=== PATIENT | male | born 1950 | race Caucasian/White ===

== ENCOUNTER 2018-12-28 07:56 | Day surgery (SDC) | payer MEDICARE ==
[~2018-12-28] VITALS: Ht 177.8 cm; Wt 102.1 kg
[~2018-12-28 07:56] MED LIST: Aspirin EC81 MG; LOSA25; MULVITMIND PO; Neurontin 100100 MG; OMEP20ER PO; PRAV20 PO; TAMS.4ER
== END 2018-12-28 10:45 | disposition home or self-care (01) ==
LOC: ORSCSDS 07:56
PROVIDERS: Internal Medicine Gastroenterology
PROC: 0DBH8ZX Excision of Cecum, Via Natural or Artificial Opening Endoscopic, Diagnostic (ICD-10-PCS; principal; 2018-12-28 09:15)
PROC: 0DB58ZX Excision of Esophagus, Via Natural or Artificial Opening Endoscopic, Diagnostic (ICD-10-PCS; principal; 2018-12-28 09:15)
PROC: 0DBM8ZX Excision of Descending Colon, Via Natural or Artificial Opening Endoscopic, Diagnostic (ICD-10-PCS; principal; 2018-12-28 09:15)
PROC: 0DBK8ZX Excision of Ascending Colon, Via Natural or Artificial Opening Endoscopic, Diagnostic (ICD-10-PCS; principal; 2018-12-28 09:15)
PROC: 06LY4CC Occlusion of Hemorrhoidal Plexus with Extraluminal Device, Percutaneous Endoscopic Approach (ICD-10-PCS; principal; 2018-12-28 09:15)
PROC: 0DB68ZX Excision of Stomach, Via Natural or Artificial Opening Endoscopic, Diagnostic (ICD-10-PCS; principal; 2018-12-28 09:15)
PROC: 0DBN8ZX Excision of Sigmoid Colon, Via Natural or Artificial Opening Endoscopic, Diagnostic (ICD-10-PCS; principal; 2018-12-28 09:15)
DX: K21.9 Gastro-esophageal reflux disease without esophagitis (principal); C15.5 Malignant neoplasm of lower third of esophagus; K22.70 Barrett's esophagus without dysplasia; R11.0 Nausea; Z12.11 Encounter for screening for malignant neoplasm of colon; Z86.010 Personal history of colon polyps; D12.2 Benign neoplasm of ascending colon; D12.4 Benign neoplasm of descending colon; D12.0 Benign neoplasm of cecum; K63.5 Polyp of colon; K64.8 Other hemorrhoids; K64.4 Residual hemorrhoidal skin tags
CPT/HCPCS: 88305; 88342; J2704; J7120

== ENCOUNTER 2019-05-31 00:56 | Observation (INO) | payer MEDICARE, OTHER ==
[~2019-05-31] VITALS: Ht 177.8 cm; Wt 98.9 kg
--- NOTE | 2019-05-31 13:30 | NUR ---
1003 PT ADMITTED TO MEDICAL FLOOR VIA [facility], PT SELF TRANSFERED TO BE WITHOUT ISSUE. 1130 PEG TUBE FLUSHED WITH 30ML WATER WITH MODERATE RESISTENCE. FLUSHED WITH ADDITIONAL 30ML WATER WITH NO RESISTENCE. [address] DR[address] DR. RASHEED NOTIFIED THAT FEEDING TUBE PATENT. 1246 PT DISCHARGED HOME VIA PERSONAL VEHICLE ACCOMAPNIED AND DRIVEN BY AND SON. PT ESCORTED TO ENTRANCE VIA W/C BY [employer]. IV REMOVED PRIOR TO D/C. EDUCATED VERBALLY AND WITH WRITTEN ON MAINTAINING PATENT FEEDING TUBE.
== END 2019-05-31 12:46 | disposition home or self-care (01) ==
LOC: ER 00:56 → MEDS 00:57 → ERHOLD 00:57 → MEDS 10:03 → ENPENDDIS 12:00 → MEDS 12:46
PROVIDERS: ADMIT Family Medicine
DX: K94.23 Gastrostomy malfunction (principal); J44.9 Chronic obstructive pulmonary disease, unspecified; E78.5 Hyperlipidemia, unspecified; Z79.899 Other long term (current) drug therapy; Z87.891 Personal history of nicotine dependence
CPT/HCPCS: 74176; 96360; 96361; 99284-25; G0378; J7030

== ENCOUNTER → 2020-02-04 | Outpatient (CLI) | payer MEDICARE ==
[2020-02-04 15:09] LABS: BASOPHILS ABSOLUTE AUTO 0.03 K/mm3 (0.00-0.23); BASOPHILS PERCENT AUTO 0 % (0-2); EOSINOPHILS ABSOLUTE AUTO 0.07 K/mm3 (0.00-0.68); EOSINOPHILS PERCENT AUTO 1 % (0-6); Hematocrit 42.1 % (37.0-53.0); Hemoglobin 13.9 g/dL (13.5-17.5); IMMATURE GRAN ABSOLUTE AUTO 0.03 K/mm3 (0.00-0.10); IMMATURE GRAN PERCENT AUTO 0 % (0-1); LYMPHOCYTES ABSOLUTE AUTO 2.16 K/mm3 (0.84-5.20); LYMPHOCYTES PERCENT AUTO 28 % (21-46); MONOCYTES PERCENT AUTO 9 % (4-13); Mean Corpuscular HGB 30.5 pg (26.0-34.0); Mean Corpuscular Volume 92 fL (80-100); Mean Platelet Volume 12.7 fL (9.1-12.4); NEUTROPHILS ABSOLUTE AUTO 4.64 K/mm3 (1.96-9.15); NEUTROPHILS PERCENT AUTO 61 % (41-73); Platelet Count 116 K/mm3 (150-400); RDW Coefficient Variation 12.8 % (11.7-14.2); RDW Standard Deviation 43.2 fL (35.1-46.3); Red Blood Cell Count 4.56 M/mm3 (4.30-5.90); White Blood Cell Count 7.63 K/mm3 (4.00-11.30)
[2020-02-04 15:45] LABS: Alanine Aminotransfer (ALT/SGP 35 U/L (12-78); Albumin, Blood 3.8 g/dL (3.4-5.0); Albumin/Globulin Ratio 1.1 (0.8-1.8); Alk Phos 78 U/L (50-136); Anion Gap 5 mmol/L (6-16); Aspartate Aminotrans (AST/SGOT 23 U/L (12-37); Bilirubin, Total 0.4 mg/dL (0.1-1.0); Blood Urea Nitrogen 17 mg/dL (8-24); CO2, Blood 26 mmol/L (21-32); Calcium, Blood 9.1 mg/dL (8.5-10.1); Chloride, Blood 108 mmol/L (98-108); Creatinine, Blood 1.13 mg/dL (0.60-1.20); Globulin, Blood 3.5 g/dL (2.2-4.0); Glomerular Filtration Rate >60 (60-); Glucose, Blood 95 mg/dL (70-99); Phosphorus, Blood 3.5 mg/dL (2.5-4.9); Potassium, Blood 4.4 mmol/L (3.5-5.5); Sodium, Blood 139 mmol/L (136-145); Total Protein, Blood 7.3 g/dL (6.4-8.2)
== END | disposition home or self-care (01) ==
LOC: LAB 13:43 → LAB SHORT 13:43
PROVIDERS: Internal Medicine Hematology & Oncology
DX: C15.5 Malignant neoplasm of lower third of esophagus (principal); R42 Dizziness and giddiness; E53.8 Deficiency of other specified B group vitamins
CPT/HCPCS: 80053; 82607; 82746; 84100; 85025

== ENCOUNTER 2021-05-17 11:05 | Day surgery (SDC) | payer MEDICARE ==
[~2021-05-17] VITALS: Ht 177.8 cm; Wt 94.1 kg
[~2021-05-17 11:05] MED LIST changes: +AMLO5 PO; +DOXA1 PO; +LOSA50 PO; +TAMS.4ER PO; +ZOCOR20 MG PO
== END 2021-05-17 14:24 | disposition home or self-care (01) ==
LOC: ORSCSDS 11:05
PROVIDERS: Student in an Organized Health Care Education/Training Program
PROC: 0DJ08ZZ Inspection of Upper Intestinal Tract, Via Natural or Artificial Opening Endoscopic (ICD-10-PCS; principal; 2021-05-17 12:30)
PROC: 0DBM8ZX Excision of Descending Colon, Via Natural or Artificial Opening Endoscopic, Diagnostic (ICD-10-PCS; principal; 2021-05-17 12:30)
PROC: 0DBH8ZX Excision of Cecum, Via Natural or Artificial Opening Endoscopic, Diagnostic (ICD-10-PCS; principal; 2021-05-17 12:30)
PROC: 0DBK8ZX Excision of Ascending Colon, Via Natural or Artificial Opening Endoscopic, Diagnostic (ICD-10-PCS; principal; 2021-05-17 12:30)
PROC: 0DBN8ZX Excision of Sigmoid Colon, Via Natural or Artificial Opening Endoscopic, Diagnostic (ICD-10-PCS; principal; 2021-05-17 12:30)
DX: Z12.11 Encounter for screening for malignant neoplasm of colon (principal); Z85.01 Personal history of malignant neoplasm of esophagus; Z86.010 Personal history of colon polyps; K21.9 Gastro-esophageal reflux disease without esophagitis; R13.12 Dysphagia, oropharyngeal phase; D12.0 Benign neoplasm of cecum; D12.2 Benign neoplasm of ascending colon; D12.4 Benign neoplasm of descending colon; D12.5 Benign neoplasm of sigmoid colon; K64.8 Other hemorrhoids; K57.30 Diverticulosis of large intestine without perforation or abscess without bleeding; I10 Essential (primary) hypertension; J44.9 Chronic obstructive pulmonary disease, unspecified; E78.5 Hyperlipidemia, unspecified; Z79.899 Other long term (current) drug therapy
CPT/HCPCS: 88305; J0330; J0461; J2405; J2704; J7120

== ENCOUNTER → 2022-06-30 | Outpatient (CLI) | payer MEDICARE ==
[2022-06-30 17:49] LABS: BASOPHILS ABSOLUTE AUTO 0.04 K/mm3 (0.00-0.23); BASOPHILS PERCENT AUTO 1 % (0-2); EOSINOPHILS ABSOLUTE AUTO 0.08 K/mm3 (0.00-0.68); EOSINOPHILS PERCENT AUTO 1 % (0-6); Hematocrit 39.8 % (37.0-53.0); Hemoglobin 13.5 g/dL (13.5-17.5); IMMATURE GRAN ABSOLUTE AUTO 0.01 K/mm3 (0.00-0.10); IMMATURE GRAN PERCENT AUTO 0 % (0-1); LYMPHOCYTES ABSOLUTE AUTO 2.01 K/mm3 (0.84-5.20); LYMPHOCYTES PERCENT AUTO 32 % (21-46); MONOCYTES ABSOLUTE AUTO 0.55 K/mm3 (0.16-1.47); MONOCYTES PERCENT AUTO 9 % (4-13); Mean Corpuscular HGB 29.7 pg (26.0-34.0); Mean Corpuscular HGB Conc 33.9 g/dL (31.5-36.5); Mean Corpuscular Volume 88 fL (80-100); NEUTROPHILS ABSOLUTE AUTO 3.59 K/mm3 (1.96-9.15); NEUTROPHILS PERCENT AUTO 57 % (41-73); Platelet Count 122 K/mm3 (150-400); RDW Coefficient Variation 13.2 % (11.7-14.2); RDW Standard Deviation 42.6 fL (35.1-46.3); Red Blood Cell Count 4.54 M/mm3 (4.30-5.90); White Blood Cell Count 6.28 K/mm3 (4.00-11.30)
[2022-07-01 10:30] LABS: Alanine Aminotransfer (ALT/SGP 29 U/L (12-78); Albumin, Blood 3.6 g/dL (3.4-5.0); Albumin/Globulin Ratio 0.9 (0.8-1.8); Alk Phos 68 U/L (50-136); Anion Gap 3 mmol/L (6-16); Aspartate Aminotrans (AST/SGOT 25 U/L (12-37); Bilirubin, Total 0.5 mg/dL (0.1-1.0); Blood Urea Nitrogen 13 mg/dL (8-24); Bun/Creatinine Ratio 11.4 (12.0-20.0); CO2, Blood 24 mmol/L (21-32); Calcium, Blood 9.5 mg/dL (8.5-10.1); Chloride, Blood 110 mmol/L (98-108); Cholesterol 133 mg/dL (50-200); Creatinine, Blood 1.14 mg/dL (0.60-1.20); Glomerular Filtration Rate 68 (60-); Glucose, Blood 103 mg/dL (70-99); HDL Cholesterol 65 mg/dL (>39); LDL/HDL RATIO 0.8; Low Density Lipoprotein Chol 52 mg/dL (0-110); PSA, %Free 19.2 %; PSA, Free 0.975 ng/mL; Potassium, Blood 4.3 mmol/L (3.5-5.5); Sodium, Blood 137 mmol/L (136-145); Total Protein, Blood 7.6 g/dL (6.4-8.2); Triglycerides 81 mg/dL (30-160); Very Low Density Lipoprot Chol 16 mg/dL (6-32)
== END | disposition home or self-care (01) ==
LOC: LAB SHORT 14:40
PROVIDERS: Nurse Practitioner Family
DX: E78.5 Hyperlipidemia, unspecified (principal); N40.1 Benign prostatic hyperplasia with lower urinary tract symptoms; I10 Essential (primary) hypertension; M70.52 Other bursitis of knee, left knee
CPT/HCPCS: 80053; 80061; 84153; 84154; 85025; 87070; 87075; 87077; 87186; 87205

== ENCOUNTER 2022-09-28 10:48 | Day surgery (SDC) | payer MEDICARE ==
[~2022-09-28] VITALS: Ht 177.8 cm; Wt 92.5 kg
[2022-09-28] MEDS ORDERED: DOXAZOSIN MESYLA2 MG PO (11:45)
--- NOTE | 2022-09-28 12:58 | NUR ---
09/28/22 1258 Jackie Smart PILLOW UNDER HEAD, ARMS SECURED ON PADDED ARM BOARDS. LOCAL ONLY CASE. LOCAL INJECTED IN PRE OP AREA.
[2022-09-28 13:47] VITALS: BP 139/84
--- NOTE | 2022-09-28 14:40 | NUR ---
09/28/22 1440 SHIRLEY GONZALES IV REMOVED AT 1405, SITE WNL, IV CANULA INTACT, PT TOLERATED PROCEDURE WELL.
== END 2022-09-28 14:20 | disposition home or self-care (01) ==
LOC: ORSCSDS 10:48
PROVIDERS: Orthopaedic Surgery
PROC: 0JBP0ZX Excision of Left Lower Leg Subcutaneous Tissue and Fascia, Open Approach, Diagnostic (ICD-10-PCS; principal; 2022-09-28 12:00)
DX: L72.0 Epidermal cyst (principal); S81.802A Unspecified open wound, left lower leg, initial encounter; M70.42 Prepatellar bursitis, left knee; I10 Essential (primary) hypertension; Z87.891 Personal history of nicotine dependence; E78.5 Hyperlipidemia, unspecified; K21.9 Gastro-esophageal reflux disease without esophagitis; N40.0 Benign prostatic hyperplasia without lower urinary tract symptoms; Z79.899 Other long term (current) drug therapy
CPT/HCPCS: 87071; 87075; 87077; 87186; 87205; 88305; J0690; J7120

== ENCOUNTER → 2023-06-27 | Outpatient (CLI) | payer MEDICARE ==
[~2023-06-27] MED LIST changes: +DOXAZOSIN MESYLA2 MG PO
[2023-06-27 16:42] LABS: BASOPHILS ABSOLUTE AUTO 0.04 K/mm3 (0.00-0.23); BASOPHILS PERCENT AUTO 1 % (0-2); EOSINOPHILS ABSOLUTE AUTO 0.08 K/mm3 (0.00-0.68); EOSINOPHILS PERCENT AUTO 1 % (0-6); Hematocrit 39.4 % (37.0-53.0); Hemoglobin 13.6 g/dL (13.5-17.5); IMMATURE GRAN ABSOLUTE AUTO 0.02 K/mm3 (0.00-0.10); IMMATURE GRAN PERCENT AUTO 0 % (0-1); LYMPHOCYTES ABSOLUTE AUTO 1.92 K/mm3 (0.84-5.20); LYMPHOCYTES PERCENT AUTO 27 % (21-46); MONOCYTES ABSOLUTE AUTO 0.68 K/mm3 (0.16-1.47); MONOCYTES PERCENT AUTO 10 % (4-13); Mean Corpuscular HGB 30.7 pg (26.0-34.0); Mean Corpuscular HGB Conc 34.5 g/dL (31.5-36.5); Mean Corpuscular Volume 89 fL (80-100); Mean Platelet Volume 11.4 fL (9.1-12.4); NEUTROPHILS ABSOLUTE AUTO 4.34 K/mm3 (1.96-9.15); NEUTROPHILS PERCENT AUTO 61 % (41-73); Platelet Count 172 K/mm3 (150-400); RDW Coefficient Variation 12.6 % (11.7-14.2); Red Blood Cell Count 4.43 M/mm3 (4.30-5.90); White Blood Cell Count 7.08 K/mm3 (4.00-11.30)
[2023-06-27 17:29] LABS: Alanine Aminotransfer (ALT/SGP 27 U/L (12-78); Albumin, Blood 3.5 g/dL (3.4-5.0); Albumin/Globulin Ratio 0.9 (0.8-1.8); Alk Phos 70 U/L (50-136); Anion Gap 2 mmol/L (6-16); Aspartate Aminotrans (AST/SGOT 26 U/L (12-37); Bilirubin, Total 0.5 mg/dL (0.1-1.0); Blood Urea Nitrogen 15 mg/dL (8-24); CHOL/HDL RATIO 2.5; CO2, Blood 25 mmol/L (21-32); Calcium, Blood 8.9 mg/dL (8.5-10.1); Chloride, Blood 109 mmol/L (98-108); Cholesterol 158 mg/dL (50-200); Globulin, Blood 3.9 g/dL (2.2-4.0); Glucose, Blood 108 mg/dL (70-99); HDL Cholesterol 62 mg/dL (>39); LDL/HDL RATIO 1.2; Low Density Lipoprotein Chol 72 mg/dL (0-110); Sodium, Blood 136 mmol/L (136-145); Total Protein, Blood 7.4 g/dL (6.4-8.2); Triglycerides 118 mg/dL (30-160); Very Low Density Lipoprot Chol 23 mg/dL (6-32)
[2023-06-27 17:44] LABS: Bun/Creatinine Ratio 12.7 (12.0-20.0); Creatinine, Blood 1.18 mg/dL (0.60-1.20); Glomerular Filtration Rate 65 (60-)
== END ==
LOC: LAB SHORT 15:43
PROVIDERS: Nurse Practitioner Family
DX: I10 Essential (primary) hypertension (principal); I70.0 Atherosclerosis of aorta
CPT/HCPCS: 80053; 80061; 85025

== ENCOUNTER 2023-10-18 11:53 | Day surgery (SDC) | payer MEDICARE ==
[~2023-10-18] VITALS: Ht 180.3 cm; Wt 93.9 kg
[~2023-10-18 11:53] MED LIST changes: +Lactated Ringer's 1,000 ML IV ONE; +propofoL 50 ML IV ONE
[2023-10-18] MEDS ORDERED: Lactated Ringer's 1,000 ML IV ONE (13:45)
[2023-10-18] MEDS ORDERED: propofoL 0 ML IV ONE ×2 (14:05→14:54)
[2023-10-18 15:27] VITALS: BP 116/78
== END 2023-10-18 15:30 | disposition home or self-care (01) ==
LOC: ORSCSDS 11:53
PROVIDERS: Internal Medicine Gastroenterology
PROC: 0DBL8ZX Excision of Transverse Colon, Via Natural or Artificial Opening Endoscopic, Diagnostic (ICD-10-PCS; principal; 2023-10-18 13:30)
PROC: 0DJ08ZZ Inspection of Upper Intestinal Tract, Via Natural or Artificial Opening Endoscopic (ICD-10-PCS; principal; 2023-10-18 13:30)
DX: R13.10 Dysphagia, unspecified (principal); Z12.11 Encounter for screening for malignant neoplasm of colon; D12.3 Benign neoplasm of transverse colon; K57.30 Diverticulosis of large intestine without perforation or abscess without bleeding; Z86.010 Personal history of colon polyps; Z85.01 Personal history of malignant neoplasm of esophagus; I10 Essential (primary) hypertension; J44.9 Chronic obstructive pulmonary disease, unspecified; E78.5 Hyperlipidemia, unspecified; K21.9 Gastro-esophageal reflux disease without esophagitis; K22.70 Barrett's esophagus without dysplasia; N40.0 Benign prostatic hyperplasia without lower urinary tract symptoms; Z87.891 Personal history of nicotine dependence; Z79.899 Other long term (current) drug therapy
CPT/HCPCS: 88305; J2704; J7120